=== PATIENT | female | born 1985 | race Caucasian/White ===

== ENCOUNTER 2023-06-12 08:50 | Day surgery (SDC) | payer OTHER ==
[2023-06-09 15:18] VITALS: BMI 23.5
[2023-06-12 11:36] VITALS: TEMP 97
[2023-06-12 11:39] VITALS: BP 109/68; PULSE 77; RESP 17
== END 2023-06-12 11:25 | disposition home or self-care (01) ==
LOC: FASU-ENDO 08:50
PROVIDERS: ATTEND Internal Medicine Gastroenterology
PROC: 0DBP8ZX Excision of Rectum, Via Natural or Artificial Opening Endoscopic, Diagnostic (ICD-10-PCS; principal; 2023-06-12 10:32)
DX: K62.5 Hemorrhage of anus and rectum (principal); K63.89 Other specified diseases of intestine; K64.0 First degree hemorrhoids; R10.9 Unspecified abdominal pain
CPT/HCPCS: 81025; 88305-TC